=== PATIENT | female | born 1990 | race American Indian/Alaskan Native ===

== ENCOUNTER 2016-11-24 07:38 | Inpatient (IN) | payer MEDICAID ==
--- NOTE | 2016-11-24 08:34 | History and Physical Report ---
History of Present Illness Date of examination: 11/24/16 Date of admission: 11/24/16 07:38 Chief complaint: 26 y/o L0 with prior loss of stillbirth at 35 weeks and IUGR in this , admitted for AMFM recommemded induction at 39wk 0d. History of present illness: Remainder of H&P is from MPV in early and confirmed today OB Intake Occupation: [employer] Vital Signs Height: 64 in. Weight (lb): 145 BMI: 24.9 BP: 110/ 68 mm Hg Ur. Protein: negative Ur. Glucose: negative Chief Complaint/Current Status: pt presents for missed period; no c/o's..tward Last pap-01/05/14...tward Menstrual History Regularity: regular Menses every: 28 days Duration: 6 LMP: 02/25/2016 LMP reliability: definite LMP character: normal test type: urine test Date: 04/18/2016 BC at conception: none Planned ? yes EDC Calculations LMP: 12/01/2016 EDC Confirmation: 12/01/2016 Gestational Age: 7 4/7 weeks Past History : 2 Term Births: 0 Premature Births: 1 Living Children: 0 Para: 1 Mult. Births: 0 Prev : 0 Aborta: 0 Elect. Ab: 0 Spont. Ab: 0 Ectopics: 0 Past Medical History: Reviewed history from 01/05/2014 and no changes required: Negative Past Medical History Past Surgical History: Reviewed history from 01/05/2014 and no changes required: Negative Past Surgical History Past Medical History Abnormal PAP: negative ZAN Exposure: negative Infertility: negative Uterine Anomaly: negative Uterine Surgery (not C/S): negative Other Gynecologic Problems: negative Social Hx: negative Patient is single Smoking History: Patient has never smoked. Infection History Hx of STD: none HIV Risk Eval: no Hepatitis B Risk Eval: low risk Personal hx. of genital herpes: no Partner hx. of genital herpes: no Rash, Viral, or Febrile illness since last LMP? no Varicella/Chicken Pox Status: Previous Disease TB Risk: no Genetic History Congenital Heart Defect: Mom: no Dad: no Gabriela Disease: Mom: no Dad: no Thalassemia Mom: no Dad: no Neural Tube Defect Mom: no Dad: no Down's Syndrome Mom: no Dad: no Peter-Sachs Mom: no Dad: no Sickle Cell Disease/Trait Mom: no Dad: no Hemophilia Mom: no Dad: no Muscular Dystrophy Mom: no Dad: no Cystic Fibrosis Mom: no Dad: no Moore Chorea Mom: no Dad: no Mental Retardation Mom: no Dad: no Fragile X Mom: no Dad: no Other Genetic/Chromosomal Disorder Mom: no Dad: no Child w/other defect Mom: no Dad: no Enviromental Exposures Xray Exposure: no Medication, drug, or alcohol use since LMP: no Chemical/Other Exposure: no Exposure to Cat Liter: no Hx of Parvovirus (Fifth Disease): no Occupational Exposure to Children: none FALSECurrent Allergies (reviewed today): No known allergies Laboratory Results Date/Time Collected: 04/18/2016 Routine Urinalysis Leukocytes: negative Nitrite: negative Urobilinogen: negative Protein: negative Blood: negative Ketone: negative Bilirubin: negative Glucose: negative Urine HCG: positive Review of Systems General Denies fever, chills, sweats, anorexia, fatigue, weakness, malaise, weight loss and sleep disorder. Denies nausea, vomiting, headache, swelling of legs, abdominal pain, vaginal discharge, vaginal bleeding and contractions. Denies vaginal discharge, incontinence, dysuria, hematuria, urinary frequency, amenorrhea, menorrhagia, abnormal vaginal bleeding, pelvic pain, genital sores, decreased libido, painful periods, painful sex, urinary urgency, hot flashes, vaginal dryness, vaginal itching and vaginal odor. CV Denies chest pains, palpitations, syncope, dyspnea on exertion, orthopnea, PND and peripheral edema. Resp Denies cough, dyspnea at rest, excessive sputum, hemoptysis, wheezing and pleurisy. GI Denies nausea, vomiting, diarrhea, constipation, change in bowel habits, abdominal pain, melena, hematochezia, jaundice, gas/bloating, indigestion/ heartburn, dysphagia and odynophagia. Endo Denies cold intolerance, heat intolerance, polydipsia, polyphagia, polyuria and unusual weight change. Breast Denies left breast lump, right breast lump, nipple discharge, bloody discharge from nipple, breast pain, abnormal mammogram and breast enlargement. MS Denies back pain, joint pain, joint swelling, muscle cramps, muscle weakness, stiffness, arthritis, sciatica, restless legs, leg pain at night and leg pain with exertion. Derm Denies rash, itching, dryness and suspicious lesions. Neuro Denies paralysis, paresthesias, headache, seizures, tremors, vertigo, transient blindness, frequent falls, frequent headaches and difficulty walking. Psych Denies depression, anxiety, irritability and mood swings. Eyes Denies blurring, diplopia, irritation, discharge, vision loss, eye pain and photophobia. ENT Denies earache, ear discharge, tinnitus, decreased hearing, nasal congestion, nosebleeds, sore throat and hoarseness. Allergy Denies urticaria, allergic rash, hay fever and recurrent infections. Heme Denies abnormal bruising, bleeding and enlarged lymph nodes. PHYSICAL EXAM HEENT: PERRLA, normal conjunctiva, external nose and nasal mucosa normal, oropharynx clear Neck/Thyroid: supple, thyroid normal Skin no significant abnormal lesions or rashes Chest: respiratory effort normal, clear to auscultation Breasts: normal without skin changes or masses CV: regular, normal S1-S2, no murmur, no rub, no gallop Abdomen: normal bowel sounds, soft, nontender, no HSM Musculoskeletal: grossly normal ROM in joints, no joint tenderness or muscle weakness Neuro: grossly normal DTRs, sensation, strength, cranial nerves Extremities: no clubbing, cyanosis, or edema TURNTABLE MAN Exams Vulva/Vagina: No lesions, normal BUS, normal rugae Cervix: No lesions; no cervical motion tenderness Uterus: normal size and position, midline, mobile Fundal Ht: 7 Adnexae: no masses or tenderness Rectovaginal: no masses or tenderness Flowsheet View for Follow-up Visit Estimated weeks of gestation: 7 4/7 Weight: 145 Blood pressure: 110 / 68 Urine protein: negative Urine glucose: negative Urine nitrite: negative Fundal height: 7 Impression & Recommendations: Problem # 1: Other specified irregular menstruation (LPH03-A61.5) RTO 1 week for dating u/s - no u/s tech in office today SAB precautions PNV, hydration and nutrition Will refer to [facility] after IUP is confirmed Past History - Obstetrical History : 2 Medications and Allergies Allergies Allergy/AdvReac Type Severity Reaction Status Date / Time No Known Allergies Allergy Verified 11/24/16 10:12 Home Medications Medication Instructions Recorded Confirmed Last Taken Type Vit-Fe Fumar-FA [ 1 tab PO QDAY 11/04/16 11/04/16 Unknown History Vitamin] - Vital Signs Vital signs: Vital Signs Pulse BP 82 116/59 11/24/16 08:26 11/24/16 08:26 Temp Pulse Resp BP Pulse Ox 82 116/59 11/24/16 08:26 11/24/16 08:26 Results Result Diagrams: 11/24/16 10:40 All other labs normal. Assessment and Plan - Patient Problems (1) Intrauterine growth restriction (IUGR) affecting care of mother, third trimester, single gestation Diagnosis Date: 11/24/16 Current Visit: Yes Status: Acute Plan to address problem: delivery by induction of labor
[2016-11-24] MEDS ORDERED: PITOCin/NS 30 UNIT/500ML 500 ML IV SCH ×3 (10:00→13:00)
[2016-11-24 10:27] LABS: Hematocrit TNR % (30.3-42.9); Hemoglobin TNR gm/dl (10.1-14.3); Mean Corpuscular Volume TNR fl (79-97); Platelet Count TNR K/mm3 (140-440); Red Blood Count TNR M/mm3 (3.65-5.03); White Blood Count TNR K/mm3 (4.5-11.0)
[2016-11-24 10:28] LABS: Mean Corpuscular HGB Conc TNR % (30-34); Mean Corpuscular Hemoglobin TNR pg (28-32); Red Cell Distribution Width TNR % (13.2-15.2)
[2016-11-24] MEDS: LACTATED RINGERS 1,000 ML IV SCH ×2 (10:40→13:10)
[2016-11-24] MEDS ORDERED: PITOCin/NS 20 UNIT/1000ML DRIP 1,000 ML IV SCH ×2 (11:00→13:00)
[2016-11-24 11:58] LABS: Hematocrit 35.5 % (30.3-42.9); Hemoglobin 11.6 gm/dl (10.1-14.3); Mean Corpuscular HGB Conc 33 % (30-34); Mean Corpuscular Hemoglobin 30 pg (28-32); Mean Corpuscular Volume 91 fl (79-97); Platelet Count 225 K/mm3 (140-440); Red Blood Count 3.89 M/mm3 (3.65-5.03); Red Cell Distribution Width 14.1 % (13.2-15.2); White Blood Count 11.6 K/mm3 (4.5-11.0)
[2016-11-24] MEDS ORDERED: SUBLIMAZE IV PRN ×2 (12:08→12:46)
[2016-11-24] MEDS ORDERED: STADOL IV PRN (12:46)
[2016-11-24] MEDS ORDERED: ePHEDrine SULFATE IV PRN ×2 (12:46→13:18)
[2016-11-24] MEDS ORDERED: BRETHINE SUB-Q PRN (12:46)
[2016-11-24] MEDS ORDERED: MINERAL OIL PO PRN (12:46)
[2016-11-24] MEDS ORDERED: NARCAN 0.4 MG/1 ML IV PRN (12:46)
[2016-11-24] MEDS ORDERED: BRETHINE IVP PRN (12:46)
[2016-11-24] MEDS ORDERED: XYLOCAINE 2% INFILTRATI ONE (12:46)
[2016-11-24] MEDS ORDERED: PHENERGAN PR PRN ×2 (12:46→19:05)
[2016-11-24] MEDS ORDERED: POLYCILLIN/NS 2 GM/100 ML 100 ML IV ONE ×2 (13:00→13:20)
[2016-11-24] MEDS ORDERED: ePHEDrine SULFATE ONE (13:08)
--- NOTE | 2016-11-24 13:17 | Anesthesia Consultation ---
Anesthesia Consult and Med Hx Date of service: 11/24/16 - Airway Anesthetic Teeth Evaluation: Good ROM Head & Neck: Adequate Mental/Hyoid Distance: Adequate Mallampati Class: Class II Intubation Access Assessment: Probably Good - Pre-Operative Health Status ASA Pre-Surgery Classification: ASA2 Proposed Anesthetic Plan: Epidural, Spinal - Pulmonary Hx Asthma: No COPD: No Hx Pneumonia: No - Cardiovascular System Hx Hypertension: No - Central Nervous System Hx Seizures: No Hx Psychiatric Problems: No - Endocrine Hx Renal Disease: No Hx End Stage Renal Disease: No Hx Hypothyroidism: No Hx Hyperthyroidism: No - Hematic Hx Anemia: No Hx Sickle Cell Disease: No - Other Systems Hx Alcohol Use: No
--- NOTE | 2016-11-24 13:18 | Anesthesia Day of Surgery ---
Anesthesia Day of Surgery - Day of Surgery Patient Examined: Yes Patient H&P Reviewed: Yes Patient is NPO: Yes
[2016-11-24] MEDS: fentaNYL-BUPIV 2 MCG/ML-0.125% 100 ML EPIDURAL SCH ×2 (14:18→18:20)
[2016-11-24] MEDS ORDERED: POLYCILLIN/NS 1 GM/50 ML 50 ML IV SCH (17:00)
--- NOTE | 2016-11-24 19:03 | Procedure Note ---
OB Delivery Note - Delivery Date of Delivery: 11/24/16 Surgeon: ANEUDY AYALA Estimated blood loss: 300cc - Vaginal Delivery presentation: vertex Delivery position: OA Intrapartum events: none Delivery induction: oxytocin Delivery augmentation: rupture of membranes Delivery monitor: external FHT, external uterine Route of delivery: Delivery placenta: spontaneous Delivery cord: 3 umbilical vessels Episiotomy: none Delivery laceration: 1st degree (periurethral) Delivery repair: vicryl (3-0) Anesthesia: none, local, epidural - A at 1 minute: 8 at 5 minutes: 8 Infant Gender: Female (6#1oz)
[2016-11-24] MEDS ORDERED: MILK OF MAGNESIA PO PRN (19:05)
[2016-11-24] MEDS ORDERED: NORCO 5/325 PO PRN (19:05)
[2016-11-24] MEDS ORDERED: PHENERGAN PO PRN (19:05)
[2016-11-24] MEDS ORDERED: LANSINOH TP PRN (19:05)
[2016-11-24] MEDS ORDERED: DERMOPLAST TP PRN (19:05)
[2016-11-24] MEDS ORDERED: DULCOLAX PR PRN (19:05)
[2016-11-24] MEDS ORDERED: TYLENOL PO PRN (19:05)
[2016-11-24] MEDS ORDERED: TUCKS PAD TP PRN (19:05)
[2016-11-24] MEDS ORDERED: ZOFRAN IV PRN (19:05)
[2016-11-24] MEDS ORDERED: BENADRYL PO PRN (19:05)
[2016-11-24] MEDS ORDERED: SODIUM CHLORIDE FLUSH SYRINGE 10 ML IV NR (20:00)
[2016-11-25] MEDS: MOTRIN PO SCH ×5 (05:15→23:49)
[2016-11-25] MEDS ORDERED: BOOSTRIX IM ONE (06:00)
[2016-11-25 08:31] LABS: Hemoglobin 10.2 gm/dl (10.1-14.3)
--- NOTE | 2016-11-25 08:35 | Progress Note ---
Assessment and Plan Patient doing well, no complaints. Lochia scant, VSSAF, H&H 09/15. pt breast feeding infant - encouraged. Continue current pathway and anticipate d/c home tomorrow. - Patient Problems (1) Vaginal delivery Diagnosis Date: 11/24/16 Current Visit: Yes Status: Acute Subjective - Subjective Date of service: 11/25/16 Principal diagnosis: day #1 s/p Patient reports: appetite normal, voiding normally, pain well controlled, ambulating normally, no dizzy ambulation, no nauseated [place]: doing well, nursing well Objective - Vital Signs Latest vital signs: Vital Signs Temp Pulse Pulse Resp BP BP Pulse Ox 11/25/16 01:20 99.1 F 86 18 117/58 11/24/16 20:40 98.5 F 76 18 125/56 11/24/16 19:45 78 112/66 11/24/16 19:30 76 111/56 11/24/16 19:28 98.6 F 18 11/24/16 19:15 80 117/66 11/24/16 19:02 87 119/71 11/24/16 18:45 93 H 106/63 11/24/16 18:35 99.9 F H 20 11/24/16 18:33 86 128/65 11/24/16 18:20 18 11/24/16 18:16 98 H 117/77 11/24/16 18:15 88 100 11/24/16 18:10 80 98 11/24/16 18:05 77 100 11/24/16 18:01 85 111/64 11/24/16 18:00 73 99 11/24/16 17:55 87 100 11/24/16 17:50 94 H 99 11/24/16 17:45 81 114/66 100 11/24/16 17:44 81 89 11/24/16 17:40 85 100 11/24/16 17:35 72 100 11/24/16 17:31 70 108/71 11/24/16 17:30 70 100 11/24/16 17:25 74 100 11/24/16 17:20 67 99 11/24/16 17:16 72 119/55 75 L 11/24/16 17:15 75 98 11/24/16 17:10 68 99 11/24/16 17:05 66 98 11/24/16 17:01 64 108/59 11/24/16 17:00 66 98 11/24/16 16:55 66 99 11/24/16 16:50 66 99 11/24/16 16:45 76 104/57 98 11/24/16 16:40 71 99 11/24/16 16:35 68 99 11/24/16 16:30 68 112/56 100 11/24/16 16:25 79 100 11/24/16 16:22 98.9 F 18 11/24/16 16:20 66 100 11/24/16 16:16 66 108/58 11/24/16 16:15 62 100 11/24/16 16:10 63 99 11/24/16 16:05 71 99 11/24/16 16:01 62 104/55 11/24/16 16:00 65 98 11/24/16 15:55 70 100 11/24/16 15:50 65 100 11/24/16 15:47 70 103/54 11/24/16 15:45 76 100 11/24/16 15:40 65 100 11/24/16 15:35 73 100 11/24/16 15:32 66 106/58 11/24/16 15:30 79 100 11/24/16 15:25 97.9 F 67 16 100 11/24/16 15:20 74 100 11/24/16 15:16 64 111/55 11/24/16 15:15 70 100 11/24/16 15:10 74 100 11/24/16 15:05 70 100 11/24/16 15:00 65 100 11/24/16 14:55 74 100 11/24/16 14:50 71 100 11/24/16 14:45 82 107/68 92 11/24/16 14:40 77 100 11/24/16 14:35 76 100 11/24/16 14:31 67 110/61 11/24/16 14:30 71 100 11/24/16 14:25 69 100 11/24/16 14:20 70 100 11/24/16 14:18 16 11/24/16 14:15 67 109/60 100 11/24/16 14:10 68 98 11/24/16 14:05 80 98 11/24/16 14:00 73 107/59 97 11/24/16 13:55 80 98 11/24/16 13:50 93 H 98 11/24/16 13:45 88 104/59 98 11/24/16 13:43 77 106/56 11/24/16 13:41 78 107/59 11/24/16 13:40 77 98 11/24/16 13:39 88 101/59 11/24/16 13:37 72 107/58 11/24/16 13:35 90 110/61 99 11/24/16 13:33 81 107/64 11/24/16 13:32 77 72 L 11/24/16 13:31 84 103/60 11/24/16 13:30 75 100 11/24/16 13:29 82 124/60 11/24/16 13:27 81 112/58 11/24/16 13:25 80 114/60 99 11/24/16 13:20 88 99 11/24/16 13:19 74 83 L 11/24/16 13:15 98 H 91 11/24/16 13:12 87 91 11/24/16 13:10 86 99 11/24/16 13:05 80 98 11/24/16 12:50 76 98 11/24/16 12:45 69 99 11/24/16 12:40 91 H 98 11/24/16 12:34 71 99 11/24/16 12:29 79 97 Intake and Output 11/24/16 11/25/16 11/25/16 22:59 06:59 14:59 Intake Total 985 950 Output Total 500 200 Balance 485 750 Intake: IV 985 470 Lactated Ringers 1,000 ml 500 @ 125 mls/hr IV DIRECT [facility] Rx#:[id number] PITOCin/NS 20 UNIT/1000ML 435 470 DRIP 1,000 ML @ 125 mls/ hr IV DIRECT [facility] Rx#: [id number] Polycillin/Ns 1 gm/50 ml 50 50 ml @ 100 mls/hr IV Q4HR [facility] Rx#:[id number] Intake, Free Water 480 Output: Urine 500 200 Void 200 Indwelling Catheter 500 Other: Total, Output Amount 500 200 Estimated Blood Loss 200 - Exam Breasts: Present: normal, Cardiovascular: Present: Regular rate Lungs: Present: Clear to auscultation, Normal air movement Abdomen: Present: normal appearance, soft Vulva: both: laceration/episiotomy (minimal edema) Uterus: Present: normal, firm, fundal height at umbilicus Extremities: Present: normal Incision: Present: normal, dry, intact - Labs Labs: Abnormal lab results 11/24/16 Range/Units 10:40 WBC 11.6 H (4.5-11.0) K/mm3
[2016-11-26] MEDS: MOTRIN PO SCH (05:15)
--- NOTE | 2016-11-26 08:22 | Progress Note ---
Assessment and Plan patient doing well, no complaints. desires d/c home today. VSSAF, lochia scant , no s/s anemia. plan for d/c home with f/u in office 4 weeks. - Patient Problems (1) Vaginal delivery Diagnosis Date: 11/24/16 Current Visit: Yes Status: Acute Subjective - Subjective Date of service: 11/26/16 Principal diagnosis: day #2 s/p Patient reports: appetite normal, voiding normally, pain well controlled, ambulating normally, no dizzy ambulation, no nauseated : doing well Objective - Vital Signs Latest vital signs: Vital Signs Temp Pulse Resp BP 11/26/16 00:00 98.2 F 66 20 119/60 11/25/16 16:11 99.1 F 84 20 100/50 Intake and Output 11/25/16 11/26/16 11/26/16 22:59 06:59 14:59 Intake Total 480 Balance 480 Intake: Oral 480 Other: Total, Intake Amount 240 # Voids Void 1 - Exam Breasts: Present: normal Cardiovascular: Present: Regular rate Lungs: Present: Clear to auscultation, Normal air movement Abdomen: Present: normal appearance, soft Vulva: both: laceration/episiotomy Uterus: Present: normal, firm, fundal height at umbilicus Extremities: Present: normal Incision: Present: normal, dry, intact
--- NOTE | 2016-11-26 08:24 | Discharge Summary ---
Providers - Providers Date of Admission: 11/24/16 07:38 Date of discharge: 11/26/16 (desires d/c home) Attending physician: ANEUDY AYALA 11/24/16 19:09 Consult to Vp Clinical [CONS] Routine Reason For Exam: assistance with , SNS Primary care physician: ANEUDY AYALA Hospitalization Reason for admission: active labor Delivery: Episiotomy: none Laceration: 1st degree Incision: normal, dry, intact Other procedures: none complications: none Discharge diagnosis: IUP at term delivered [place] baby: female Hospital course: uncomplicated vaginal delivery Condition at discharge: Good Disposition: DISCHARGED TO HOME OR SELFCARE - Discharge Diagnoses (1) Vaginal delivery Status: Acute Plan - Discharge Medications Prescriptions: Ibuprofen [Motrin 600 MG tab] 600 mg PO Q8H PRN #30 tablet PRN Reason: Pain - Provider Discharge Summary Activity: routine, no sex for 6 weeks, no heavy lifting 4 weeks, no strenuous exercise Diet: routine Instructions: routine Additional instructions: [] Smoking cessation referral if applicable(refer to patient education folder for contact #) [] Refer to [facility]'s [facility] Booklet Call your doctor immediately for: * Fever > 100.5 * Heavy vaginal bleeding ( >1 pad per hour) * Severe persistent headache * Shortness of breath * Reddened, hot, painful area to leg or breast * Drainage or odor from incision. * Keep incision clean and dry at all times and follow doctor's instructions regarding bathing/showering - Follow up plan Follow up: ANEUDY AYALA MD [Primary Care Provider] - 12/24/16 (Congratulations! Please call [phone] to schedule your visit in 4 weeks. Call for any questions or concerns. )
[2016-11-26 15:23] VITALS: BP 111/57
== END 2016-11-26 14:20 | disposition home or self-care (01) | DRG 775 ==
LOC: LD 07:38 → OB 20:42
PROVIDERS: ADMIT Obstetrics & Gynecology; ATTEND Obstetrics & Gynecology
PROC: 0HQ9XZZ Repair Perineum Skin, External Approach (ICD-10-PCS; principal; 2016-11-24)
PROC: 10E0XZZ Delivery of Products of Conception, External Approach (ICD-10-PCS; 2016-11-24)
PROC: 3E0S3CZ (ICD-10-PCS; 2016-11-24)
PROC: 00HU33Z Insertion of Infusion Device into Spinal Canal, Percutaneous Approach (ICD-10-PCS; 2016-11-24)
DX: O36.5930 Maternal care for other known or suspected poor fetal growth, third trimester, not applicable or unspecified (principal); O71.82 Other specified trauma to perineum and vulva; Z37.0 Single live birth; Z3A.39 39 weeks gestation of pregnancy
CPT/HCPCS: 36415; 85014; 85018; 85027; 86592; 86850; 86900; 86901; 90471; 90715; 99211; A6250; G0463; J0290; J2590; J3010; J7120